=== PATIENT | female | born 1970 | race Caucasian/White ===

== ENCOUNTER 2021-12-19 14:28 | Emergency (ER) | payer OTHER, BC ==
[2021-12-19] MEDS ORDERED: Acetaminophen 325 MG Tab PO ONE (15:40)
[2021-12-19 16:25] VITALS: BP 148/77; PULSE 61
== END 2021-12-19 17:24 | disposition home or self-care (01) ==
LOC: JP.ED 14:28
DX: S06.0X9A Concussion with loss of consciousness of unspecified duration, initial encounter (principal); Z72.0 Tobacco use; Z88.1 Allergy status to other antibiotic agents; Z88.0 Allergy status to penicillin; Z88.2 Allergy status to sulfonamides; W18.30XA Fall on same level, unspecified, initial encounter; Y92.219 Unspecified school as the place of occurrence of the external cause; Y99.0 Civilian activity done for income or pay
CPT/HCPCS: 70450; 99283; A9270